=== PATIENT | female | born 1995 | race Caucasian/White ===

== ENCOUNTER 2022-05-28 17:23 | Emergency (ER) | payer BC, MEDICAID ==
[2022-05-28 20:33] LABS: C. TRACHOMATIS BY PCR DETECTED; N. GONORRHOEAE BY PCR NOT DETECTED
[2022-05-28 23:00] VITALS: BP 122/63; PULSE 95
== END 2022-05-28 19:23 | disposition home or self-care (01) ==
LOC: MW.ED 17:23
DX: K64.5 Perianal venous thrombosis (principal); Z72.0 Tobacco use
CPT/HCPCS: 81001; 87480; 87491; 87510; 87591; 87660; 99283

== ENCOUNTER 2022-07-26 04:28 | Emergency (ER) | payer MEDICAID, OTHER ==
[2022-07-26 04:44] VITALS: BP 136/87; PULSE 95
== END 2022-07-26 06:37 | disposition home or self-care (01) ==
LOC: MW.ED 04:28
DX: R30.0 Dysuria (principal); L30.9 Dermatitis, unspecified; F15.929 Other stimulant use, unspecified with intoxication, unspecified; Z91.030 Bee allergy status
CPT/HCPCS: 80305-QW; 81001; 81025; 99283

== ENCOUNTER 2022-07-27 00:15 | Emergency (ER) | payer MEDICAID ==
[2022-07-27 00:31] VITALS: BP 139/85; PULSE 107
== END 2022-07-27 01:04 | disposition home or self-care (01) ==
LOC: MW.ED 00:15
DX: R00.2 Palpitations (principal); L30.9 Dermatitis, unspecified; F15.10 Other stimulant abuse, uncomplicated; Z91.030 Bee allergy status; Z90.49 Acquired absence of other specified parts of digestive tract; X31.XXXA Exposure to excessive natural cold, initial encounter
CPT/HCPCS: 82947; 99283

== ENCOUNTER 2022-07-29 01:33 | Emergency (ER) | payer MEDICAID | END 2022-07-29 02:09 | disposition left against medical advice (07) | LOC: MW.ED 01:33 | DX: Z53.21 Procedure and treatment not carried out due to patient leaving prior to being seen by health care provider (principal) ==

== ENCOUNTER 2022-08-27 16:07 | Emergency (ER) | payer MEDICAID | END 2022-08-27 16:40 | disposition left against medical advice (07) | LOC: MW.ED 16:07 | DX: F41.9 Anxiety disorder, unspecified (principal); F19.11 Other psychoactive substance abuse, in remission; Z91.030 Bee allergy status | CPT/HCPCS: 99283; 99284 ==

== ENCOUNTER 2023-06-27 13:00 | Emergency (ER) | payer SELFPAY ==
[2023-06-27 13:38] LABS: BASOPHILS ABSOLUTE AUTO 0.05 K/uL (0.00-0.20); BASOPHILS PERCENT AUTO 0.6 % (0.0-1.0); EOSINOPHILS ABSOLUTE AUTO 0.05 K/uL (0.00-0.45); EOSINOPHILS PERCENT AUTO 0.6 % (0.0-6.0); HEMOGLOBIN 15.2 g/dL (12.0-16.0); IMMATURE GRAN ABSOLUTE AUTO 0.03 K/uL (0.00-0.05); IMMATURE GRAN PERCENT AUTO 0.4 % (0.0-0.4); LYMPHOCYTES ABSOLUTE AUTO 1.86 K/uL (1.00-4.80); MEAN CORPUSCULAR HEMOGLOBIN 31.8 pg (28.0-32.0); MEAN CORPUSCULAR HGB CONC 35.3 g/dL (32.0-36.0); MEAN PLATELET VOLUME 9.3 fL (9.4-12.3); MONOCYTES ABSOLUTE AUTO 1.05 K/uL (0.00-0.80); NEUTROPHILS ABSOLUTE AUTO 5.03 K/uL (1.80-7.70); NEUTROPHILS PERCENT AUTO 62.4 % (41.0-71.0); PLATELET COUNT,PLT 264 K/uL (150-400); RED BLOOD CELL COUNT 4.78 M/uL (4.10-5.30); WHITE BLOOD CELL COUNT,WBC 8.07 K/uL (3.9-11.3)
[2023-06-27 14:12] LABS: A/G RATIO 1.1 (0.9-1.6); ACETAMINOPHEN <2.0 ug/mL; ALANINE AMINOTRANSFERASE,ALT 12 IU/L (14-63); ALBUMIN 4.2 g/dL (3.4-5.0); ALKALINE PHOSPHATASE 78 U/L (46-116); ASPARTATE AMNIOTRANSFERASE,AST 16 IU/L (15-37); BILIRUBIN TOTAL 0.3 mg/dL (0.2-1.0); BLOOD UREA NITROGEN,BUN 14 mg/dL (7.0-18.0); CALCIUM 9.2 mg/dL (8.5-10.1); CARBON DIOXIDE,CO2 25.5 mmol/L (21.0-32.0); CHLORIDE,CL 103 mmol/L (98-107); CREATININE 0.9 mg/dL (0.6-1.0); ETHANOL BLOOD MEDICAL <3 mg/dL; GLUCOSE RANDOM 112 mg/dL (74-106); POTASSIUM,K 3.8 mmol/L (3.5-5.1); PROTEIN TOTAL,TP 7.9 g/dL (6.4-8.2); SALICYLATE 2.4 mg/dL (0.0-20.0); SODIUM,NA 140 mmol/L (136-145); TSH ULTRASENSITIVE 1.04 uIU/mL (0.36-3.74)
[2023-06-27 14:13] LABS: ESTIMATED GFR 89 mL/min (>60)
[2023-06-27 15:03] VITALS: BP 114/98; PULSE 94
[2023-06-27 15:51] LABS: CORONAVIRUS COVID-19 NAA NEGATIVE (NEGATIVE); INFLUENZA A NAA NEGATIVE (NEGATIVE); INFLUENZA B NAA NEGATIVE (NEGATIVE); RESPIRATORY SYNCYTIAL VIR NAA NEGATIVE (NEGATIVE)
== END 2023-06-27 18:29 ==
LOC: MW.ED 13:00
DX: Z04.6 Encounter for general psychiatric examination, requested by authority (principal); Z20.822 Contact with and (suspected) exposure to COVID-19; Z91.030 Bee allergy status
CPT/HCPCS: 0241U; 36415; 80053; 80143; 80179; 80307; 84443; 84703; 85025; 99285

== ENCOUNTER 2024-08-09 20:18 | Emergency (ER) | payer MEDICAID | END 2024-08-09 21:11 | disposition left against medical advice (07) | LOC: MW.ED 20:18 | DX: Z53.21 Procedure and treatment not carried out due to patient leaving prior to being seen by health care provider (principal) ==